=== PATIENT | male | born 1990 | race Two or more races ===

== ENCOUNTER 2025-05-25 11:03 | Emergency (ER) | payer OTHER ==
[~2025-05-25] VITALS: Ht 167.6 cm; Wt 77.7 kg
[2025-05-25 11:13] VITALS: TEMP 98.1
[2025-05-25] MEDS ORDERED: BACITRACIN ZINC/POLYMYXIN B 14.2 GM OINTMENT TP ONE (13:00)
[2025-05-25] MEDS: BACITRACIN 0.9 GM PACKET OINTMENT TP ONE (13:09)
[2025-05-25] MEDS: LIDOCAINE 1% 10 ML VIAL ID ONE (13:09)
[2025-05-25] MEDS: POVIDONE-IODINE 10% 120 ML SOLUTION TP ONE (13:17)
[2025-05-25 13:45] VITALS: BP 119/82; PULSE 81; RESP 16; O2SAT 100
[2025-05-25] MEDS: PERTUSS(ACELL),DIPH,TET/PF 0.5 ML SYRINGE [ADULT] IM. ONE (13:59)
[2025-05-25] MEDS ORDERED: TETANUS/DIPHTHERIA TOXOID [TENIVAC] [7YR+] 0.5 ML SYRINGE IM. ONE (14:00)
== END 2025-05-25 14:15 ==
LOC: EMS 11:03
DX: S61.212A Laceration without foreign body of right middle finger without damage to nail, initial encounter (principal); W25.XXXA Contact with sharp glass, initial encounter; Y93.89 Activity, other specified; Y92.89 Other specified places as the place of occurrence of the external cause; Y99.8 Other external cause status
CPT/HCPCS: 99283; 73130; 90715; 90471; 12001; J3490; 90714